=== PATIENT | male | born 1970 | race Caucasian/White ===

== ENCOUNTER 2017-01-10 13:25 | Emergency (ER) | payer BC ==
--- NOTE | 2017-01-10 13:54 | Emergency Department Record ---
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 patient had sweats and chilles today and he has had cellulitis in the left leg before in 2006. Onset/Timin -: Hour(s) Location: Left, Lower Leg, Thigh History of Same: No Severity scale (1-10): 8 Quality: Burning Consistency: Constant Improves with: Nothing Worsens with: Nothing Associated Symptoms: Fever, Myalgias - Related Data Home Medications Medication Instructions Recorded Confirmed Last Taken Ibuprofen [Motrin] 800 mg PO TID PRN 01/05/16 01/10/17 Unknown Previous Rx's Medication Instructions Recorded Cephalexin [Keflex] 500 mg PO QID #40 cap 01/10/17 Sulfamethoxazole/Trimethoprim 1 each PO BID #20 tablet 01/10/17 [Bactrim Ds Tablet] Allergies Allergy/AdvReac Type Severity Reaction Status Date / Time No Known Drug Allergies Allergy Verified 01/10/17 13:32 Travel Screening - Travel/Exposure Within Last 30 Days Have you traveled within the last 30 days?: No - Travel/Exposure Within Last Year Have you traveled outside the [place] in the last year?: No - Additonal Travel Details Have you been exposed to anyone with a communicable illness?: No - Travel Symptoms Symptom Screening: None Review of Systems Reviewed: No additional complaints except as noted below Constitutional: Reports: As per HPI. Denies: Chills, Fever, Malaise, Night sweats, Weakness, Weight change Eyes: Reports: As per HPI. Denies: Eye discharge, Eye pain, Photophobia, Vision change ENT: Reports: As per HPI. Denies: Congestion, Dental pain, Ear pain, Epistaxis , Hearing loss, Throat pain Respiratory: Reports: As per HPI. Denies: Cough, Dyspnea, Hemoptysis, Stridor, Wheezes Cardiovascular: Reports: As per HPI. Denies: Arrhythmia, Chest pain, Dyspnea on exertion, Edema, Murmurs, Orthopnea, Palpitations, Paroxysmal nocturnal dyspnea, Rheumatic Fever, Syncope Endocrine: Reports: As per HPI. Denies: Fatigue, Heat or cold intolerance, Polydipsia, Polyuria Gastrointestinal: Reports: As per HPI. Denies: Abdominal pain, Constipation, Diarrhea, Hematemesis, Hematochezia, Melena, Nausea, Vomiting Genitourinary: Reports: As per HPI. Denies: Dysuria, Frequency, Hematuria, Incontinence, Retention, Testicular pain, Testicular mass, Urgency Musculoskeletal: Reports: As per HPI. Denies: Arthralgia, Back pain, Gout, Joint swelling, Myalgia, Neck pain Skin: Reports: As per HPI, Rash (redness in the medial thigh area and swollen). Denies: Bruising, Change in color, Change in hair/nails, Lesions, Pruritus Neurological: Reports: As per HPI. Denies: Abnormal gait, Confusion, Headache, Numbness, Paresthesias, Seizure, Tingling, Tremors, Vertigo, Weakness Psychiatric: Reports: As per HPI. Denies: Anxiety, Auditory hallucinations, Depression, Homicidal thoughts, Suicidal thoughts, Visual hallucinations Hematological/Lymphatic: Reports: As per HPI. Denies: Anemia, Blood Clots, Easy bleeding, Easy bruising, Swollen glands Past Medical History - SOCIAL HISTORY Smoking Status: Never smoker Alcohol Use: Occasional Drug Use: None - RESPIRATORY Hx Respiratory Disorders: No - CARDIOVASCULAR Hx Cardio Disorders: No Hx Edema: Yes (right Right leg s/p leg reattachement) - NEURO Hx Neuro Disorders: No - GI Hx GI Disorders: Yes Hx Abdominal Pain: Yes (Began 1999 on 01/03 pc, epigastric, like gas) Hx Nausea/Vomiting: Yes (Started at [facility] X[facility]) Hx Wt Loss/Wt Gain: Yes (50# since September 29) - Hx Genitourinary Disorders: No - ENDOCRINE Hx Endocrine Disorders: No - MUSCULOSKELETAL Hx Musculoskeletal Disorders: No - PSYCH Hx Psych Problems: No - HEMATOLOGY/ONCOLOGY Hx Hematology/Oncology Disorders: No Hx Blood Transfusions: Yes Hx Blood Transfusion Reaction: No Family Medical History Any Significant Family History?: No Physical Exam - General General Appearance: Alert, Oriented x3, Cooperative, No acute distress - Head Head exam: Normal inspection - Eye Eye exam: Normal appearance, PERRL Pupils: Normal accommodation - ENT ENT exam: Normal exam, Mucous membranes moist, Normal external ear exam, Normal orophraynx, TM's normal bilaterally Ear exam: Normal external inspection. negative: External canal tenderness Nasal Exam: Normal inspection. negative: Discharge, Sinus tenderness Mouth exam: Normal external inspection, Tongue normal Teeth exam: Normal inspection. negative: Dental caries Throat exam: Normal inspection. negative: Tonsillar erythema, Tonsillar exudate - Neck Neck exam: Normal inspection, Full ROM. negative: Tenderness - Respiratory Respiratory exam: Normal lung sounds bilaterally. negative: Respiratory distress - Cardiovascular Cardiovascular Exam: Regular rate, Normal rhythm, Normal heart sounds - GI/Abdominal GI/Abdominal exam: Soft, Normal bowel sounds. negative: Tenderness - Rectal Rectal exam: Deferred - exam: Deferred - Extremities Extremities exam: Full ROM, Normal capillary refill, Tenderness (redness medial thigh and he has a split in the area of 4th and 5th toe) - Back Back exam: Reports: Normal inspection, Full ROM. Denies: Muscle spasm, Rash noted, Tenderness - Neurological Neurological exam: Alert, Normal gait, Oriented X3, Reflexes normal - Psychiatric Psychiatric exam: Normal affect, Normal mood - Skin Skin exam: Dry, Intact, Normal color, Warm Course Vital Signs 01/10/17 13:33 Temperature 100.7 F H Pulse Rate 117 H Respiratory 18 Rate Blood Pressure 120/74 Pulse Ox 94 L Medical Decision Making - Data Complexity MDM Data: Labs Ordered and/or Reviewed (WBC 15,600), X-Ray Ordered and/or Reviewed (venous dopler negative for DVT) - Lab Data Result diagrams: 01/10/17 14:05 01/10/17 14:05 Disposition Clinical Impression: Cellulitis of leg without foot, left Tinea pedis Qualifiers: Laterality: left Qualified Code(s): B35.3 - Tinea pedis Disposition: Home, Self-Care Condition: (1) Good Instructions: Cellulitis (ED) Additional Instructions: elevate leg see family in 2 days if redness getting worse return to ED. take bactrim DS twice a day keflex 500 mg four time a day Prescriptions: Cephalexin [Keflex] 500 mg PO QID #40 cap Sulfamethoxazole/Trimethoprim [Bactrim Ds Tablet] 1 each PO BID #20 tablet Forms: Patient Portal Access Time of Disposition: 17:12 Quality - Quality Measures Quality Measures: N/A - Blood Pressure Screening Blood Pressure Classification: Pre-Hypertensive BP Reading Systolic Measurement: 120 Diastolic Measurement: 74 Screening for High Blood Pressure: < Pre-Hypertensive BP, F/U Documented > [ [id number]] Pre-Hypertensive Follow-up Interventions: Referral to alternative/primary care provider.
[2017-01-10] MEDS ORDERED: 0.9 % SODIUM CHLORIDE 1000ML 1,000 ML IV ONE (14:00)
[2017-01-10 14:18] LABS: HEMATOCRIT 44.6 % (42.0-52.0); HEMOGLOBIN 15.3 gm/dl (14.0-18.0); MEAN CELL VOLUME 83.2 fl (81-97); MEAN CORPUSCULAR HEMOGLOBIN 28.5 pg (27-33); MEAN CORPUSCULAR HGB CONC 34.3 g/dl (32-36); MEAN PLATELET VOLUME 10.6 fl (7.4-10.4); PLATELET COUNT 179 K/uL (130-400); RED BLOOD COUNT 5.36 M/uL (4.40-5.70); WHITE BLOOD COUNT W/O DIFF 15.6 K/uL (4.2-12.2)
[2017-01-10 14:33] LABS: ANION GAP 13.2 (7-16); BLOOD UREA NITROGEN 19 mg/dL (9-20); CARBON DIOXIDE 23.8 mmol/L (22-30); CREATININE 1.1 mg/dL (0.66-1.25); EST GLOMERULAR FILTRATION RATE > 60 ml/min; GLUCOSE,RANDOM 101 mg/dL (70-110)
[2017-01-10 14:38] LABS: PLATELET ESTIMATE NORMAL (NORMAL)
[2017-01-10] MEDS ORDERED: TMP/SMZ 160MG/800MG TAB PO ONE (14:48)
[2017-01-10] MEDS ORDERED: CEFTRIAXONE SODIUM 1 GM in 0.9 % SODIUM CHLORIDE 100ML 100 ML IVPB ONE (14:48)
[2017-01-10] MEDS ORDERED: ACETAMINOPHEN 500 MG TABLET PO ONE (14:53)
[2017-01-10] MEDS ORDERED: 0.9 % SODIUM CHLORIDE 1000ML 1,000 ML IV SCH (15:00)
--- NOTE | 2017-01-11 13:00 | US VENOUS DOPPLER REPORT ---
EXAM: ULTRASOUND OF THE DEEP VENOUS SYSTEM OF THE LEFT LOWER EXTREMITY HISTORY: PAIN. TECHNIQUE: Sonographic evaluation of the deep venous system of the left lower extremity was performed with the addition of Doppler, compression and augmentation. FINDINGS: There is normal compression, augmentation and blood flow identified in the deep venous system of the left lower extremity. No evidence of deep vein thrombosis. IMPRESSION: NEGATIVE FOR DEEP VEIN THROMBOSIS. JOB NUMBER: [id number] MTDD
== END 2017-01-10 17:34 | disposition home or self-care (01) ==
LOC: ER 13:25
DX: L03.116 Cellulitis of left lower limb (principal); B35.3 Tinea pedis; M79.662 Pain in left lower leg
CPT/HCPCS: 99284 ×2; 96365; 80048; 85027; 93971; J3490

== ENCOUNTER 2017-10-17 09:25 | Day surgery (SDC) | payer BC ==
[~2017-10-17 09:25] MED LIST: ACETAMINOPHEN 1,000 MG/100 ML BTL IV ONE; CEFAZOLIN 1 Gram 1 GM/50 ML BAG IVPB ONE; CEFAZOLIN 2 Gram 2 GM/50 ML BAG IVPB ONE
[2017-10-17] MEDS ORDERED: BUPIVACAINE 0.25% W/EPI MPF 30ML VIAL IVP ONE (09:26)
[2017-10-17] MEDS ORDERED: *PACU ONLY* KETAMINE HCL 10 MG/ML (20ML) VIAL IV ONE (09:26)
[2017-10-17] MEDS ORDERED: KETOROLAC 30 MG/ML VIAL IVP ONE (09:26)
[2017-10-17] MEDS ORDERED: PROPOFOL 10 MG/ML VIAL IV ONE (09:26)
[2017-10-17] MEDS ORDERED: MIDAZOLAM HCL 2MG/2ML VIAL IV ONE (09:26)
[2017-10-17] MEDS ORDERED: LIDOCAINE 2% MDV (20MG/ML) 20ML VIAL IV ONE (09:26)
--- NOTE | 2017-10-18 10:10 | Operative Note ---
DATE OF SURGERY: 10/17/2017 Surgeon: Aamir Malik DO PREOPERATIVE DIAGNOSIS: Back mass. POSTOPERATIVE DIAGNOSIS: Back mass. OPERATION: Excision of back mass. Indication: The patient is a 46-year-old male who has an enlarging mass in his mid back. Excision risks, benefits, and alternatives were discussed. Risks include bleeding, infection, recurrence. He understood this fully. PROCEDURE: Thereafter, consent was signed and questions answered. The patient was taken to the operating room and placed in a supine position. Local IV sedation was given per the department of anesthesia. The patient's back was shaved of hair and prepped and draped in the usual fashion. The area around the mass anesthetized with a total of 10 mL of 0.25% Sensorcaine with epinephrine. At this time, a 4 cm incision was made. This was carried down through subcutaneous tissue to a rather large lipoma. This was dissected free from the surrounding tissue with cautery as well as blunt dissection. This lipoma measured about 4 cm down to the fascia. This was then fully excised. The wound was then closed with 3-0 and 4-0 Vicryl. Dermabond was placed. He was taken to the recovery room in satisfactory condition. FINDINGS AT THE TIME OF SURGERY: A 4 cm lipoma to the fascia. CC: Margareth FORTUNE
== END 2017-10-17 11:25 | disposition home or self-care (01) ==
LOC: SUR 09:25
PROVIDERS: ATTEND Surgery
DX: D17.1 Benign lipomatous neoplasm of skin and subcutaneous tissue of trunk (principal)
CPT/HCPCS: 21931; 00300; J1885; J0690 ×2